=== PATIENT | female | born 1985 | race Caucasian/White ===

== ENCOUNTER 2018-03-12 09:54 | Emergency (ER) | payer BC, MEDICARE ==
[2018-03-12] MEDS ORDERED: Sodium Chloride 0.9% 10 ML Syringe FLUSH PRN (10:32)
[2018-03-12] MEDS ORDERED: HYDROmorphone 1 MG/ML Syringe IVPUSH ONE ×2 (10:33→13:58)
[2018-03-12] MEDS ORDERED: Ondansetron 4 MG/2 ML SDV IVPUSH ONE (10:33)
[2018-03-12] MEDS ORDERED: Sodium Chloride 0.9% 500 ML IV ONE (10:33)
--- NOTE | 2018-03-12 11:11 | EDM.PDOC ---
ED HPI GENERAL MEDICAL PROBLEM - General Chief Complaint: Abdominal Pain Stated Complaint: LOW ABDOMINAL PAIN AFTER WEIGHT LOSS SURGERY Time Seen by Provider: 03/12/18 10:23 Source of Information: Reports: Patient, RN Notes Reviewed - History of Present Illness INITIAL COMMENTS - FREE TEXT/NARRATIVE: 33-year-old female comes in with generalized abdominal pain. She did have gastric sleeve surgery about a month ago. Said she had been recovering okay, had a postop visit about a week ago which was fine. She's developed increasing abdominal discomfort over the past 2 or 3 days. this morning pain is primarily lower abdomen although there is upper abdominal discomfort as well. She states the pain is worse with motion, better to be still. She has had some nausea, decreased appetite yesterday and today but no vomiting and also no diarrhea. She has been somewhat constipated. No voiding symptoms. Her last menstrual period several weeks ago. No bleeding, spotting or discharge at this time. No chest pain cough or difficulty breathing. She still does have her appendix. Lower Abdomen Pain Score (Numeric/FACES): 8 - Related Data Allergies Allergy/AdvReac Type Severity Reaction Status Date / Time animal dander Allergy Hives Verified 03/12/18 10:11 Home Meds: Home Meds Hydrocodone/Acetaminophen [[place] 5-325 Tablet] 1 each PO Q6HR PRN #20 tablet 02/16 [Rx] Ondansetron [Zofran ODT] 4 mg PO Q6H PRN #10 tab.dis 03/12/18 [Rx] Past Medical History Psychiatric History: Reports: Bipolar Social & Family History - Tobacco Use Smoking Status *Q: Former Smoker Used Tobacco, but Quit: Yes Month/Year Tobacco Last Used: 2014 - Caffeine Use Caffeine Use: Reports: None - Recreational Drug Use Recreational Drug Use: No ED ROS GENERAL - Review of Systems Review Of Systems: See Below Constitutional: Denies: Fever, Chills HEENT: Reports: Other. Denies: Throat Pain Respiratory: Denies: Shortness of Breath (Oral mucosa is dry), Pleuritic Chest Pain Cardiovascular: Denies: Chest Pain GI/Abdominal: Reports: Abdominal Pain, Constipation, Decreased Appetite, Nausea. Denies: Diarrhea, Vomiting : Reports: No Symptoms Musculoskeletal: Reports: No Symptoms Skin: Denies: Rash Neurological: Reports: No Symptoms ED EXAM, GI/ABD - Physical Exam Exam: See Below General Appearance: Alert, Moderate Distress Eyes: Bilateral: Normal Appearance Throat/Mouth: Other (Oral mucosa dry) Head: Atraumatic. No: Facial Swelling Neck: Supple Respiratory/Chest: No Respiratory Distress, Lungs Clear, Normal Breath Sounds Cardiovascular: Regular Rate, Rhythm GI/Abdominal Exam: Guarding, Rebound (Mild mild), Tender (Moderate diffuse tenderness entire abdomen, abdomen does appear mildly distended) Back Exam: CVA Tenderness (L), CVA Tenderness (R) (Mild) Extremities: No: Pedal Edema, Leg Pain Skin Exam: Warm, Normal Color Course - Vital Signs Last Recorded V/S: Last Vital Signs Temp 98.4 F 03/12/18 10:05 Pulse 92 03/12/18 10:05 Resp 16 03/12/18 10:05 BP 137/86 03/12/18 10:05 Pulse Ox 97 03/12/18 10:05 - Orders/Labs/Meds Orders: Active Orders 24 hr Category Date Time Status Peripheral IV Care [RC] . DIRECTED Care 03/12/18 10:33 Active Abdomen 2V AP Flat Upright [CR] Stat Exams 03/12/18 10:35 Taken Abdomen Pelvis w Cont [CT] Stat Exams 03/12/18 12:25 Taken Peripheral IV Insertion Adult [OM.PC] Stat Oth 03/12/18 10:32 Ordered Labs: Laboratory Tests 03/12/18 03/12/18 03/12/18 Range/Units 10:49 10:49 10:49 WBC 10.81 H (3.98-10.04) K/mm3 RBC 4.32 (3.98-5.22) M/mm3 Hgb 12.9 (11.2-15.7) gm/L Hct 38.2 (34.1-44.9) % MCV 88.4 (79.4-94.8) fl MCH 29.9 (25.6-32.2) pg MCHC 33.8 (32.2-35.5) g/dl RDW Std Deviation 42.2 (36.4-46.3) fL Plt Count 164 L (182-369) K/mm3 MPV 11.3 (9.4-12.3) fl Neutrophils % (Manual) 71 H (40-60) % Band Neutrophils % 0 (0-10) % Lymphocytes % (Manual) 26 (20-40) % Atypical Lymphs % 0 % Monocytes % (Manual) 3 (2-10) % Eosinophils % (Manual) 0 L (0.7-5.8) % Basophils % (Manual) 0 L (0.1-1.2) Platelet Estimate Adequate RBC Morph Comment Normal Sodium 138 (136-145) mEq/L Potassium 3.8 (3.5-5.1) mEq/L Chloride 101 (98-107) mEq/L Carbon Dioxide 23 (21-32) mEq/L Anion Gap 17.8 H (5-15) BUN 9 (7-18) mg/dL Creatinine 0.6 (0.55-1.02) mg/dL Est Cr Clr Drug Dosing 94.00 mL/min Estimated GFR (MDRD) > 60 (>60) mL/min BUN/Creatinine Ratio 15.0 (14-18) Glucose 85 (74-106) mg/dL Calcium 8.7 (8.5-10.1) mg/dL Total Bilirubin 0.7 (0.2-1.0) mg/dL AST 10 L (15-37) U/L ALT 21 (14-59) U/L Alkaline Phosphatase 75 (46-116) U/L C-Reactive Protein 15.5 H* (<1.0) mg/dL Total Protein 7.3 (6.4-8.2) g/dl Albumin 3.1 L (3.4-5.0) g/dl Globulin 4.2 gm/dL Albumin/Globulin Ratio 0.7 L (1-2) Lipase 182 (73-393) U/L HCG, Qual (NEGATIVE) Urine Color (Yellow) Urine Appearance (Clear) Urine pH (5.0-8.0) Ur Specific [place] (1.005-1.030) Urine Protein (Negative) Urine Glucose (UA) (Negative) Urine Ketones (Negative) Urine Occult Blood (Negative) Urine Nitrite (Negative) Urine Bilirubin (Negative) Urine Urobilinogen (0.2-1.0) Ur Leukocyte Esterase (Negative) Urine RBC (0-5) /hpf Urine WBC (0-5) /hpf Ur Epithelial Cells (0-5) /hpf Urine Bacteria (FEW) /hpf Urine Mucus (FEW) /hpf 03/12/18 03/12/18 Range/Units 10:49 12:35 WBC (3.98-10.04) K/mm3 RBC (3.98-5.22) M/mm3 Hgb (11.2-15.7) gm/L Hct (34.1-44.9) % MCV (79.4-94.8) fl MCH (25.6-32.2) pg MCHC (32.2-35.5) g/dl RDW Std Deviation (36.4-46.3) fL Plt Count (182-369) K/mm3 MPV (9.4-12.3) fl Neutrophils % (Manual) (40-60) % Band Neutrophils % (0-10) % Lymphocytes % (Manual) (20-40) % Atypical Lymphs % % Monocytes % (Manual) (2-10) % Eosinophils % (Manual) (0.7-5.8) % Basophils % (Manual) (0.1-1.2) Platelet Estimate RBC Morph Comment Sodium (136-145) mEq/L Potassium (3.5-5.1) mEq/L Chloride (98-107) mEq/L Carbon Dioxide (21-32) mEq/L Anion Gap (5-15) BUN (7-18) mg/dL Creatinine (0.55-1.02) mg/dL Est Cr Clr Drug Dosing mL/min Estimated GFR (MDRD) (>60) mL/min BUN/Creatinine Ratio (14-18) Glucose (74-106) mg/dL Calcium (8.5-10.1) mg/dL Total Bilirubin (0.2-1.0) mg/dL AST (15-37) U/L ALT (14-59) U/L Alkaline Phosphatase (46-116) U/L C-Reactive Protein (<1.0) mg/dL Total Protein (6.4-8.2) g/dl Albumin (3.4-5.0) g/dl Globulin gm/dL Albumin/Globulin Ratio (1-2) Lipase (73-393) U/L HCG, Qual Negative (NEGATIVE) Urine Color Yellow (Yellow) Urine Appearance Clear (Clear) Urine pH 6.0 (5.0-8.0) Ur Specific [place] 1.025 (1.005-1.030) Urine Protein 1+ H (Negative) Urine Glucose (UA) Negative (Negative) Urine Ketones 3+ H (Negative) Urine Occult Blood Trace-lysed H (Negative) Urine Nitrite Negative (Negative) Urine Bilirubin 3+ H (Negative) Urine Urobilinogen 1.0 (0.2-1.0) Ur Leukocyte Esterase Negative (Negative) Urine RBC 0-5 (0-5) /hpf Urine WBC 0-5 (0-5) /hpf Ur Epithelial Cells 0-5 (0-5) /hpf Urine Bacteria Few (FEW) /hpf Urine Mucus Many H (FEW) /hpf Meds: Medications Discontinued Medications Generic Name Dose Route Start Last Admin Trade Name Freq PRN Reason Stop Dose Admin Hydromorphone HCl 1 mg 03/12/18 10:33 03/12/18 10:45 Dilaudid IVPUSH 03/12/18 10:34 1 mg ONETIME ONE Administration Hydromorphone HCl 1 mg 03/12/18 13:58 03/12/18 14:14 Dilaudid IVPUSH 03/12/18 13:59 1 mg ONETIME ONE Administration Sodium Chloride 500 mls @ 999 mls/hr 03/12/18 10:33 03/12/18 10:45 Normal Saline IV 03/12/18 11:03 999 mls/hr .BOLUS ONE Administration Sodium Chloride 1,000 mls @ 999 mls/hr 03/12/18 12:30 03/12/18 12:38 Normal Saline IV 999 mls/hr ONETIME KATHYA Administration Ondansetron HCl 4 mg 03/12/18 10:33 03/12/18 10:45 Zofran IVPUSH 03/12/18 10:34 4 mg ONETIME ONE Administration Sodium Chloride 10 ml 03/12/18 10:32 03/12/18 10:46 Saline Flush FLUSH 10 ml ASDIRECTED PRN Administration Keep Vein Open - Re-Assessments/Exams Free Text/Narrative Re-Assessment/Exam: 03/12/18 16:16 CT of abdomen and pelvis shows bulky enlargement of uterus measuring 26 x 14.6 with 17.7 cm. Multiple uterine masses consistent with multiple myomas with cystic degeneration or necrosis. See radiology report for details. Patient does feel better after multiple doses of Dilaudid IV, Zofran IV. No evidence for appendicitis. Abdomen and bowel looks fine on CT. Evidence of prior gastric bypass. I have discussed this with Dr. Gonzales, OB mail distributor wind farm operations manager. She states that she should be able to see her around the middle of next week. In the meantime I have prescribed some hydrocodone and Zofran 4 symptoms of pain and nausea as needed. Discharge instructions as documented. Departure - Departure Time of Disposition: 15:40 Disposition: Home, Self-Care 01 Condition: Fair Clinical Impression: Pelvic pain Uterine fibroid Qualifiers: Uterine leiomyoma location: unspecified location Qualified Code(s): D25.9 - Leiomyoma of uterus, unspecified - Discharge Information Prescriptions: Hydrocodone/Acetaminophen [[place] 5-325 Tablet] 1 each PO Q6HR PRN #20 tablet PRN Reason: Pain Ondansetron [Zofran ODT] 4 mg PO Q6H PRN #10 tab.dis PRN Reason: Nausea/Vomiting Instructions: Uterine Fibroids, [id number], Pelvic Pain, Female Referrals: Eli Menezes ELECTRICAL ASSEMBLER [Primary Care Provider] - Forms: ED Department Discharge Additional Instructions: Your appendix today looks normal and the area of your gastric sleeve also looks normal on CT scan. There are multiple large uterine fibromas visible as had been discussed after your gastric surgery. Zofran ODT every 6-8 hours if needed for further nausea vomiting. Hydrocodone 1 tab every 4-6 hours if needed for severe pain, Tylenol for mild to moderate discomfort. Take Tylenol and hydrocodone at the same time, do not drive when taking hydrocodone. Plan to not work for the next 3-4 days until pain resolving. See Dr. Gonzales next week at [facility], call [phone] Wednesday morning for appointment. Return to ED as needed if symptoms worsening in any way. - My Orders Last 24 Hours: My Active Orders 03/12/18 10:32 Peripheral IV Insertion Adult [OM.PC] Stat 03/12/18 10:33 Peripheral IV Care [RC] . DIRECTED 03/12/18 10:35 Abdomen 2V AP Flat Upright [CR] Stat 03/12/18 12:25 Abdomen Pelvis w Cont [CT] Stat - Assessment/Plan Last 24 Hours: My Active Orders 03/12/18 10:32 Peripheral IV Insertion Adult [OM.PC] Stat 03/12/18 10:33 Peripheral IV Care [RC] . DIRECTED 03/12/18 10:35 Abdomen 2V AP Flat Upright [CR] Stat 03/12/18 12:25 Abdomen Pelvis w Cont [CT] Stat
[2018-03-12] MEDS ORDERED: Sodium Chloride 0.9% 1,000 ML IV SCH (12:30)
--- NOTE | 2018-03-13 17:00 | CR ---
Abdomen: Supine and upright views of the abdomen were obtained. Comparison: No previous study. Soft tissue abnormality is seen arising out of the pelvis pushing the bowel superiorly and laterally. Surgical anastomotic sutures are seen within the left upper abdomen. Bony structures are unremarkable. No free air is seen. IUD is seen which is located outside pelvis. Impression: 1. Abnormal study as noted above. Diagnostic code #3
--- NOTE | 2018-03-13 17:00 | CT ---
CT abdomen and pelvis Technique: Multiple axial sections were obtained from above the dome of the diaphragm inferiorly through the pubic symphysis. Intravenous and oral contrast was utilized. Delayed images were also obtained through the abdomen and pelvis. Comparison: Prior abdominal x-ray performed earlier on the same day (11:40 AM). Findings: Minimal bilateral pleural effusions are seen. Very slight compressive atelectasis is noted within the left base. Low density findings seen next to the ligamentum teres fissure which is felt to be incidental. Liver is otherwise unremarkable in appearance. Spleen appears within normal limits. Previous gastric surgery is noted. Adrenal glands show no nodule. Pancreas is within normal limits. Gallbladder contains no calcified gallstones. Kidneys show symmetric contrast enhancement without hydronephrosis or mass. Aorta shows no aneurysm. No retroperitoneal adenopathy is seen. Appendix felt to be visualized and is normal. Extremely enlarged uterus is seen compatible with diffuse leiomyomatous change. Large low density finding is noted within the lower uterus measuring up to 14.5 cm which is felt compatible with large degenerated fibroid. Uterus has a craniocaudal measurement of 28.6 cm with AP measurement of 15.3 cm and transverse measurement of 18.7 cm. Delayed images shows 2 nondilated left ureters as well as single nondilated right ureter. Small amount of free fluid noted within the pelvis most likely physiologic. No inflammatory change is seen. Impression: 1. Very enlarged uterus with diffuse leiomyomatous change. Large low density findings seen within the lower uterus measuring 14.5 cm which is felt compatible with large degenerated fibroid. Measurements of the uterus as noted above. 2. 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 3. Small bilateral pleural effusions. 4. Other incidental finding as noted above. Diagnostic code #3 I agree with preliminary report from [facility], finalized on 03/12/18, 3:56 PM Central Time
== END 2018-03-12 16:05 | disposition home or self-care (01) ==
LOC: JD.ED 09:54
DX: D25.9 Leiomyoma of uterus, unspecified (principal); Z91.09 Other allergy status, other than to drugs and biological substances; Z87.891 Personal history of nicotine dependence
CPT/HCPCS: 36415; 74019; 74177; 80053; 81001; 83690; 84703; 85007; 85027; 86140; 96361; 96374; 96375; 96376; 99285; J1170; J2405; J7040; 99284